=== PATIENT | female | born 2000 | race Caucasian/White ===

== ENCOUNTER 2023-08-02 14:26 | Inpatient (IN) ==
[2023-08-02 15:35] LABS: Basophils # (auto) 0.04 K/uL (0.00-0.20); Basophils % (auto) 0.7 %; Eosinophils # (auto) 0.01 K/uL (0.00-0.50); Eosinophils % (auto) 0.2 %; Hemoglobin 13.4 g/dl (12.0-16.0); Immature Granulocytes # (auto) 0.02 K/uL (0.01-0.20); Immature Granulocytes % (auto) 0.3 %; Lymphocytes # (auto) 0.92 K/uL (1.20-3.40); Lymphocytes % (auto) 15.9 %; Mean Corpuscular Hemoglobin 30.3 pg (25.0-34.0); Mean Corpuscular Hgb Conc 33.5 g/dL (32.0-36.0); Mean Corpuscular Volume 90.5 fL (80.0-100.0); Mean Platelet Volume 8.9 fL (9.4-12.4); Monocytes # (auto) 0.34 K/uL (0.11-0.59); Monocytes % (auto) 5.9 %; Neutrophils # (auto) 4.45 K/uL (1.40-6.50); Platelet Count 219 K/uL (130-400); RDW Coefficient of Variation 13.1 % (11.5-14.5); RDW Standard Deviation 42.9 fL (36.4-46.3); Red Blood Count 4.42 M/uL (4.20-5.40); White Blood Count 5.78 K/ul (4.8-10.8)
[2023-08-02 15:46] LABS: Albumin Globulin Ratio 1.4 (0.9-2); Albumin Level 4.6 gm/dl (3.4-5.0); BUN Creatinine Ratio 8.5 (10-20); Bilirubin,Total 1.2 mg/dl (0.2-1.0); Calcium 9.7 mg/dl (8.6-10.3); Creatinine Clr Calc Pharmacy 109.9 ml/min; Est GFR (African American) 140.1 ml/min; Est GFR (Non-African American) 120.9 ml/min; Globulin 3.3 gm/dl (2.5-4.0); Potassium 3.7 mmol/L (3.5-5.1); Total Protein 7.9 gm/dl (6.0-8.3)
[2023-08-02 15:55] LABS: Acetaminophen < 3 ug/ml (10-30); Salicylate < 3.0 mg/dl (3.0-30)
[2023-08-02 15:59] LABS: Thyroid Stimulating Hormone 1.518 uIu/ml (0.300-4.500)
--- NOTE | 2023-08-02 20:10 | Emergency Department Note ---
History of Present Illness General Chief complaint: Mental Health Evaluation Stated complaint: OVERDOSE, MHID Time Seen by Provider: 08/02/23 14:38 History of Present Illness Provider complaint: Mental health evaluation Six 23-year-old female presents to the emergency department for mental health evaluation. Patient states she is very depressed. She states earlier today she got to an argument with another female friend and then impulsively tried to overdose by taking 10 tablets of spironolactone 25 mg 1 hour ago. She denies any chance of no access to any firearms. Home Medications Medication Instructions Recorded Confirmed Type spironolactone 100 mg tablet 100 mg PO HS 08/02/23 08/02/23 History Allergies Allergy/AdvReac Type Severity Reaction Status Date / Time Penicillins Allergy Rash Verified 08/02/23 17:55 Past Med/Surg History Medical History No pertinent family history Depression Surgical History No pertinent past surgical history Social History Smoking Status: Never smoker Feels Safe at Home: Yes Gender Identity: Female Physical Exam Vital Signs Vital Signs - 24 hr 08/02/23 14:35 08/02/23 14:35 08/02/23 14:58 Temperature 36.7 C 36.6 C Temperature Source Oral Oral Pulse Rate 106 H Pulse Rate [Left Finger] 106 H 101 H Pulse Rate from SpO2 Sensor Pulse Rhythm Regular Pulse Rhythm [Left Finger] Pulse Strength Normal Pulse Strength [Left Finger] Respiratory Rate 22 14 18 Respiratory Effort / Characteristics Non-Labored Spontaneous Non-Labored Spontaneous Respiratory Depth Normal Normal Respiratory Pattern Regular Regular Blood Pressure 139/98 Blood Pressure [Right Arm] 139/98 122/76 Blood Pressure Mean 111 Blood Pressure Mean [Right Arm] 111 91 Blood Pressure Position Sitting Blood Pressure Position [Right Arm] Semi-fowlers Pulse Oximetry 96 96 99 Oxygen Delivery Method Room Air Room Air Room Air Sepsis Recent Fever Within 48 Hours No Sepsis New/Unexplained Change in Mental Status No Sepsis Action Taken by Nursing No Action Required 08/02/23 15:15 08/02/23 15:24 08/02/23 15:30 Temperature Temperature Source Pulse Rate 78 85 98 H Pulse Rate [Left Finger] Pulse Rate from SpO2 Sensor 82 102 H Pulse Rhythm Pulse Rhythm [Left Finger] Pulse Strength Pulse Strength [Left Finger] Respiratory Rate 12 17 Respiratory Effort / Characteristics Respiratory Depth Respiratory Pattern Blood Pressure 120/76 122/76 Blood Pressure [Right Arm] Blood Pressure Mean 90 91 Blood Pressure Mean [Right Arm] Blood Pressure Position Blood Pressure Position [Right Arm] Pulse Oximetry 99 96 Oxygen Delivery Method Sepsis Recent Fever Within 48 Hours Sepsis New/Unexplained Change in Mental Status Sepsis Action Taken by Nursing 08/02/23 15:45 08/02/23 16:34 08/02/23 18:00 Temperature Temperature Source Pulse Rate 85 Pulse Rate [Left Finger] 89 79 Pulse Rate from SpO2 Sensor 75 Pulse Rhythm Pulse Rhythm [Left Finger] Pulse Strength Pulse Strength [Left Finger] Respiratory Rate 20 18 16 Respiratory Effort / Characteristics Respiratory Depth Respiratory Pattern Blood Pressure 114/72 Blood Pressure [Right Arm] 120/61 114/65 Blood Pressure Mean 86 Blood Pressure Mean [Right Arm] 80 81 Blood Pressure Position Blood Pressure Position [Right Arm] Pulse Oximetry 97 97 98 Oxygen Delivery Method Sepsis Recent Fever Within 48 Hours Sepsis New/Unexplained Change in Mental Status Sepsis Action Taken by Nursing 08/02/23 19:23 08/02/23 20:00 08/02/23 20:32 Temperature Temperature Source Pulse Rate 129 H Pulse Rate [Left Finger] 88 82 Pulse Rate from SpO2 Sensor Pulse Rhythm Pulse Rhythm [Left Finger] Regular Regular Pulse Strength Pulse Strength [Left Finger] Normal Normal Respiratory Rate 18 16 Respiratory Effort / Characteristics Non-Labored Spontaneous Non-Labored Respiratory Depth Normal Normal Respiratory Pattern Regular Regular Blood Pressure Blood Pressure [Right Arm] 115/66 125/93 Blood Pressure Mean Blood Pressure Mean [Right Arm] 82 103 Blood Pressure Position Blood Pressure Position [Right Arm] Lying Pulse Oximetry 96 95 Oxygen Delivery Method Room Air Room Air Sepsis Recent Fever Within 48 Hours Sepsis New/Unexplained Change in Mental Status Sepsis Action Taken by Nursing 08/02/23 20:48 Temperature Temperature Source Pulse Rate Pulse Rate [Left Finger] 77 Pulse Rate from SpO2 Sensor Pulse Rhythm Pulse Rhythm [Left Finger] Regular Pulse Strength Pulse Strength [Left Finger] Normal Respiratory Rate 16 Respiratory Effort / Characteristics Non-Labored Respiratory Depth Normal Respiratory Pattern Regular Blood Pressure Blood Pressure [Right Arm] 107/63 Blood Pressure Mean Blood Pressure Mean [Right Arm] 77 Blood Pressure Position Blood Pressure Position [Right Arm] Lying Pulse Oximetry 97 Oxygen Delivery Method Room Air Sepsis Recent Fever Within 48 Hours Sepsis New/Unexplained Change in Mental Status Sepsis Action Taken by Nursing Physical Exam GENERAL: oriented to person, place, and time. appears well-developed and well- nourished. HENT: Exam performed. - Head: Normocephalic and atraumatic. EYES: Conjunctivae and EOM are normal. Right eye exhibits no discharge. Left eye exhibits no discharge. No scleral icterus. NECK: Normal range of motion. Neck supple. No JVD present. CV: Normal rate, regular rhythm, normal heart sounds and intact distal pulses. There is no peripheral edema. Palpable radial pulses bue. PULM/CHEST: Effort normal and breath sounds normal. No respiratory distress. No stridor. no wheezes. no rales. ABD: The abdomen is soft. There is no tenderness. NEURO: Motor and sensation grossly intact. SKIN: Skin is warm and dry. He is not diaphoretic. PSYCH: Depression suicidal ideation. Course Course 1438: The patient was evaluated in room A6. A complete history and physical exam was performed 150: Spoke with Edwin from poison control. He states that the patient should have her vitals and electrolytes checked along with serum Tylenol and salicylate level. He recommends observation for the patient for 4 to 6 hours. 1600: Labs within normal limits. Will continue to observe the patient had the patient evaluated by psychiatric lining caser for inpatient treatment. Patient placed in observation at this time. 2138: Excepted to the [facility] transport scheduled for tomorrow morning. Case signed out to Dr. Forrest Medical Decision Making Laboratory Data Attestation: I reviewed the patient's lab results. 08/02/23 15:05 08/02/23 15:05 Lab Results 08/02/23 08/02/23 Range/Units 15:05 21:06 WBC 5.78 (4.8-10.8) K/ul RBC 4.42 (4.20-5.40) M/uL Hgb 13.4 (12.0-16.0) g/dl Hct 40.0 (37.0-47.0) % MCV 90.5 (80.0-100.0) fL MCH 30.3 (25.0-34.0) pg MCHC 33.5 (32.0-36.0) g/dL RDW Std Deviation 42.9 (36.4-46.3) fL RDW Coeff of Ramiro 13.1 (11.5-14.5) % Plt Count 219 (130-400) K/uL MPV 8.9 L (9.4-12.4) fL Immature Gran % (Auto) 0.3 % Neut % (Auto) 77.0 % Lymph % (Auto) 15.9 % [place] % (Auto) 5.9 % Eos % (Auto) 0.2 % Baso % (Auto) 0.7 % Neut # (Auto) 4.45 (1.40-6.50) K/uL Lymph # (Auto) 0.92 L (1.20-3.40) K/uL [place] # (Auto) 0.34 (0.11-0.59) K/uL Eos # (Auto) 0.01 (0.00-0.50) K/uL Baso # (Auto) 0.04 (0.00-0.20) K/uL Immature Gran # (Auto) 0.02 (0.01-0.20) K/uL Sodium 140 (136-145) mmol/L Potassium 3.7 (3.5-5.1) mmol/L Chloride 106 (98-107) mmol/L Carbon Dioxide 23 (21-32) mmol/L Anion Gap 11 (3-11) BUN 6 (6-23) mg/dl Creatinine 0.71 (0.6-1.2) mg/dl Est Cr Clr Drug Dosing 109.9 ml/min Est GFR ( Amer) 140.1 ml/min Est GFR (Non-Af Amer) 120.9 ml/min BUN/Creatinine Ratio 8.5 L (10-20) Glucose 94 (70-99(Fasting)) mg/dl Calcium 9.7 (8.6-10.3) mg/dl Total Bilirubin 1.2 H (0.2-1.0) mg/dl AST 25 (13-39) U/L ALT 13 (7-52) U/L Alkaline Phosphatase 48 (34-104) U/L Total Protein 7.9 (6.0-8.3) gm/dl Albumin 4.6 (3.4-5.0) gm/dl Globulin 3.3 (2.5-4.0) gm/dl Albumin/Globulin Ratio 1.4 (0.9-2) TSH 1.518 (0.300-4.500) uIu/ml POC Ur Test NEG (NEG) Salicylates < 3.0 L (3.0-30) mg/dl Acetaminophen < 3 L (10-30) ug/ml Ethyl Alcohol mg/dL < 10.0 (<10.0) mg/dl SARS-CoV-2, RNA, NAAT NEGATIVE (NEGATIVE) ECG Data Attestation: I personally reviewed and interpreted this ECG as follows: Indication: + toxicologic Rate (beats per minute): 100 ECG Intervals/blocks: + Normal WA and + Normal QT-c ECG ST segments: + Normal ST segments Additional Comments: QRS 70 MDM Narrative 1438: The patient was evaluated in room A6. A complete history and physical exam was performed 1502: Spoke with Edwin from poison control. He states that the patient should have her vitals and electrolytes checked along with serum Tylenol and salicylate level. He recommends observation for the patient for 4 to 6 hours. 1600: Labs within normal limits. Will continue to observe the patient had the patient evaluated by psychiatric lining caser for inpatient treatment. Patient placed in observation at this time. 2138: Excepted to the [facility] transport scheduled for tomorrow morning. Case signed out to Dr. Forrest Observation note Indication: Psych eval/placement Patient, with depression was first seen at 1438 hrs and the observation time began at 1600 hrs and was necessary in order to have psych evaluation completed . Impression & Plan Depression with suicidal ideation Discharge Plan Visit Data Chief Complaint: Mental Health Evaluation Stated Complaint: OVERDOSE, MHID ED Provider: Anirudh Forrest Discharge Problem: Depression with suicidal ideation Patient Disposition: Transfer Behavioral Health Fac Forms Stand Alone Forms: My [facility], Suicide Prevention Resources Prescriptions Prescriptions: No Action spironolactone 100 mg Tablet 100 mg PO HS Referrals Referrals: PCP,NO [Primary Care Provider] -
[2023-08-02 22:02] LABS: Appearance Urine Cloudy (Clear); Bacteria Urine Automated 1+ (None Seen); Bilirubin Urine Negative (Negative); Blood Urine 3+ (Negative); Color Urine Orange; Glucose Urine UA Negative (Negative); Ketones Urine Trace (Negative); Leukocyte Esterase Urine Trace (Negative); Nitrite Urine Negative (Negative); Protein Urine 2+ (Negative); RBC Urine Automated >20 /hpf (0-2); Specific Gravity Urine 1.017 (1.000-1.030); Urobilinogen Urine Negative (Negative); WBC Urine Automated 0-5 /hpf (0-5)
[2023-08-02 22:39] LABS: Amphetamines+Metham, Urine Neg (Neg); Barbiturates, Urine Neg (Neg); Benzodiazepine, Urine Neg (Neg); Cocaine, Urine Pos (Neg); MDMA (Ecstacy), Urine Neg (Neg); Marijuana, Urine Pos (Neg); Methadone, Urine Neg (Neg); Opiate, Urine Neg (Neg); Phencyclidine, Urine Neg (Neg)
--- NOTE | 2023-08-02 23:04 | Emergency Department Note ---
ED Visit Note I assumed care at the change of shift. The patient had presented voluntarily after overdosing on spironolactone. She was thought to be medically clear. The poison center was involved in her clearance. A bed search was underway. Patient was accepted to our psychiatric service, 3 S. The appropriate paperwork was signed. She will be admitted voluntarily. .
[2023-08-02] MEDS ORDERED: ACETAMINOPHEN 325 MG TAB PO PRN (23:50)
[2023-08-02] MEDS ORDERED: ALUMINUM/MAGNESIUM SUSP 30 ML UDC PO PRN (23:50)
[2023-08-02] MEDS ORDERED: SODIUM CHLORIDE 0.65% NA SOLN 45 ML (OCEAN) PRN (23:50)
[2023-08-02] MEDS ORDERED: BISMUTH SUBSALICYLATE LIQD 236 ML PO PRN (23:50)
[2023-08-02] MEDS ORDERED: MAGNESIUM HYDROXIDE SUSP 30 ML UDC PO PRN (23:50)
--- NOTE | 2023-08-03 09:05 | History & Physical ---
Date of Service August 03, 2023 Impression / Recommendations Impression Amber is a 23 year old woman and [employer] senior with a history of depression and anxiety who was admitted for suicide attempt via overdose of prescription medication in the context of conflict with friends and shame of not being able to graduate. Diagnostically consistent with major depressive disorder with anxious distress and SARAH. She is deemed in need of psychiatric hospitalization for diagnostic clarification, safety and stabilization, medication management and development of further coping skills. Discussed medication treatment options in detail including SSRIs and SNRIs. Discussed risks, benefits and alternatives. She declines medication at this time, prefers to focus on therapy. Motivational interviewing regarding substance use, she plans to avoid future use. Overall I spent a total of 80 minutes for this admission including review of chart records, review of labwork, direct evaluation of the patient, counseling the patient, ordering medication, risk assessment, discussion with the psychiatric liason RN and documentation in the electronic health record. (1) Suicide attempt: (2) Recurrent severe major depressive disorder with anxiety: (3) SARAH (generalized anxiety disorder): Plan 08/03/2023: The patient was admitted to the [facility] on q15 min checks (behavioral with suicide precautions) for safety. The patient will participate in group, recreational, and milieu therapies and will be offered additional individual and family sessions as clinically appropriate. -Reviewed option to use Vistaril prn Inventory Assets Strengths: supportive relationships, willing to get treatment Needs: safety and stabilization, medication adjustment, additional coping skills, increased outpatient services Suicide Risk Level Suicide Risk Level: High-Moderate (q15 min suicide checks) (depression s/p suicide attempt but feels safe in the hospital) Risk Factors Assessment : Yes Do You Have Access To A Gun?: No Mental Health Diagnoses: Yes Previous Attempt: Yes (leading to this admission) Family History of Suicide: No Previous Psychiatric Hospitalization: No Hopelessness: No Protective Factors Assessment 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 Chief Complaint "I'm so sad, I really miss my parents". History of Present Illness Eleni presents for psychiatric admission for worsening depression and after a suicide attempt from overdose of prescription medication of spironolactone or sertraline (~10 tablets) and writing a suicide note for her family and friends. She reports multiple recent psychosocial stressors contributing to the worsening of her depression and leading to her suicide attempt including academic stress including not being able to graduate but hadn't yet shared this with family, concern about how to tell her parents, and conflict with friends. "I just didn't want to deal with everything with graduation and how to tell my parents". Her depression worsened significantly this winter with anhedonia, low energy, napping a lot during the day and difficulty sleeping at night, hopelessness, decreased appetite but trying to eat still. SI started around the same time her depression worsened but she never thought she would act on these thoughts. Was having SI about once a day. A friend broke her trust and then started spreading lies about her last week which added to her feeling of being "so sick of everything" and stress about not graduating. Yesterday in the moment she impulsively took some of her medication and then wrote a suicide note. Then she started to throw up and felt light headed. Her mom then called and after revealing her suicide attempt an ambulance was called. She's happy to be alive. She also endorses anxiety symptoms including excessive worry, restlessness, fatigue, irritability, muscle tension, insomnia sometimes heart will race has never had a panic attacks. Additional information per ED CM note on 08/02/2023: "Amber stated she has been really depressed. She stated this morning she took medicine because "I didn't want to be here." She stated she overdosed on Zoloft. She denies any pr ior suicide attempts. 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 She lives off campus with two roommates. Amber stated she is from [facility]. She stated she sees a therapist at [facility]. She stopped seeing her psychiatrist a month ago when she stopped her medication. She has not taken her prescribed Lexapro approx. 3-4 weeks ago. She had written a suicide note. She denies any HI or aggression. She denies SIB. She denies hallucinations, paranoia, or delusion based thinking. She has no inpatient treatment history. She is diagnosed with depression and anxiety. She denies any medical issues. She stated she drinks alcohol socially. She denies substance use. She denies any legal issues. She denies history of trauma/abuse. She is agreeable with recommendation for inpatient mental health treatment." She is not currently taking any psychiatric medications. Stopped taking esc italopram about 3-4 weeks ago. Psychiatric ROS notable for no current or past symptoms of cherry, psychosis, eating disorder, self-harm nor OCD. Past Psychiatric History Previous Psych History: Reports she has been depressed since high school Current Psychiatric Diagnosis: Depression; Anxiety Outpatient Services: Vaishnavi Valerio therapist at [facility], seeing for the last month weekly Used to see a psychiatrist through [facility] but after she left the practice she stopped seeing anyone Previous Psych Admissions: none Do You Have Access To A Gun?: No History of Previous Suicide Attempt: No Past Medication Trials: sertraline (50mg, started in Apr 2023 took for about 1-2 months, caused sweatiness, OH, sleep issues); escitalopram (10mg qd, ~1 month) Past Head Trauma/Neuro History History of Concussion/Seizure: Yes 2 mild concussions in high school no hx seizure Allergies Allergy/AdvReac Type Severity Reaction Status Date / Time Penicillins Allergy Rash Verified 08/02/23 17:55 Home Medications Medication Instructions Recorded Confirmed Type spironolactone 100 mg tablet 100 mg PO HS 08/02/23 08/02/23 History Family History Family History of: Depression, Anxiety and Other-List under Comment (brother with ASD) Alcohol History Hx of Alcohol Use Over the Past 12 Months: Yes (socially) AUDIT Total Score: 4 Smoking Use Have You Smoked or Used Tobacco Products in the Last 30 Days: No Smoking Status: Never smoker Substance History Hx of Prescription Med Misuse Over the Past 12 Months: No Hx of Over the Counter Med Misuse Over the Past 12 Months: No Hx of Inhalent Misuse Over the Past 12 Months: No Hx of Organic Substance Use Over the Past 12 Months: No Hx of Illegal Substances/Street Drug Use Over Past 12 Months: No Problems as a Result of Past Substance Use: None Identified Occasionally will smoke cannabis likes it helps with sleep, can interfere with socializing. This weekend tried cocaine via snorting. Personal History Living Arrangements: Apartment Childhood: Grew up outside [place]. Parents are . Older brother and 3 younger sisters. 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 Required: No Beliefs That Will Affect Care: None Feels Safe at Home: Yes Gender Identity: Female Assistive Devices: None Review of Systems Review of Systems: All systems reviewed & are unremarkable except as noted in HPI & below Physical Exam Psychiatric: Orientation: alert and oriented x 3 Apperance: appropriately dressed and appropriately groomed Eye Contact: good eye contact Motor Behavior: no abnormal motor movements Speech: normal rate/rhythm/volume of speech Affect: + depressed affect, + anxious affect and + tearful affect Mood: + depressed mood and + anxious mood Thought Process: goal directed thought process Thought Content: reality based without delusions Suicidal Thoughts: denies suicidal thoughts (but s/p suicide attempt), denies suicidal plan and denies suicidal intent Homicidal Thoughts: denies homicidal thoughts Hallucinations: no auditory hallucinations and no visual hallucinations Cognition: recent memory grossly intact, remote memory grossly intact, attention grossly intact and language grossly intact Estimated Intelligence: consistent with education level Insight: + fair insight Judgment: + limited judgement Vital Signs (Past 24 Hours): Last Vital Signs Temp 36.8 C 08/03/23 06:30 Pulse 75 08/03/23 06:31 Resp 16 08/03/23 06:30 BP 109/71 08/03/23 06:31 Pulse Ox 97 08/02/23 23:58 O2 Del Method Room Air 08/02/23 23:58 Exam Statement: A physical exam was performed in the ED by Dr. Fields for the purposes of medical clearance. I accept that physical as correct and adequate for the purposes of the inpatient physical exam. Results & Data [facility] Laboratory Results Laboratory Results - last 24 hr 08/02/23 08/02/23 08/02/23 15:05 20:56 21:06 WBC 5.78 RBC 4.42 Hgb 13.4 Hct 40.0 MCV 90.5 MCH 30.3 MCHC 33.5 RDW Std Deviation 42.9 RDW Coeff of Ramiro 13.1 Plt Count 219 MPV 8.9 L Immature Gran % (Auto) 0.3 Neut % (Auto) 77.0 Lymph % (Auto) 15.9 [place] % (Auto) 5.9 Eos % (Auto) 0.2 Baso % (Auto) 0.7 Neut # (Auto) 4.45 Lymph # (Auto) 0.92 L [place] # (Auto) 0.34 Eos # (Auto) 0.01 Baso # (Auto) 0.04 Immature Gran # (Auto) 0.02 Sodium 140 Potassium 3.7 Chloride 106 Carbon Dioxide 23 Anion Gap 11 BUN 6 Creatinine 0.71 Est Cr Clr Drug Dosing 109.9 Est GFR ( Amer) 140.1 Est GFR (Non-Af Amer) 120.9 BUN/Creatinine Ratio 8.5 L Glucose 94 Calcium 9.7 Total Bilirubin 1.2 H AST 25 ALT 13 Alkaline Phosphatase 48 Total Protein 7.9 Albumin 4.6 Globulin 3.3 Albumin/Globulin Ratio 1.4 TSH 1.518 Urine Color [place] Urine Appearance Cloudy A Urine pH 7.0 Ur Specific [place] 1.017 Urine Protein 2+ H Urine Glucose (UA) Negative Urine Ketones Trace H Urine Blood 3+ H Urine Nitrite Negative Urine Bilirubin Negative Urine Urobilinogen Negative Ur Leukocyte Esterase Trace H Urine WBC (Auto) 0-5 Urine RBC (Auto) >20 H U Hyaline Cast (Auto) 3-5 H U Epithel Cells (Auto) 3-5 H Urine Bacteria (Auto) 1+ H POC Ur Test NEG Salicylates < 3.0 L Urine Opiates Screen Neg Ur Methadone, Qual Neg Acetaminophen < 3 L Urine Barbiturates Neg Ur Phencyclidine (PCP) Neg U Amphetamin/Meth Scrn Neg MDMA (Ecstasy) Screen Neg U Benzodiazepines Scrn Neg U Cocaine Confirm GC/MS Pending Ur Cocaine Metabolite Pos H U Marijuana (THC) Screen Pos H U Marijuana THC Carboxy Pending Drug Screen Comment Pending Ethyl Alcohol mg/dL < 10.0 SARS-CoV-2, RNA, NAAT NEGATIVE Diagnostic Findings normal QTc on EKG done in the ED Current Inpatient Medications Current Inpatient Medications: Current Inpatient Medications Acetaminophen (Acetaminophen 325 Mg Tab) 650 mg PO Q4H PRN PRN Reason: Headache or Minor Fever Stop: 09/01/23 23:49 Al Hydrox/Mg Hydrox/Simethicone (Aluminum/Magnesium Susp 30 Ml Udc) 30 ml PO Q4H PRN PRN Reason: GI Upset Stop: 09/01/23 23:49 Bismuth Subsalicylate (Bismuth Subsalicylate Liqd 236 Ml) 15 ml PO PRN PRN PRN Reason: Loose Stool Stop: 09/01/23 23:49 Hydroxyzine HCl (Hydroxyzine Hcl 25 Mg Tab) 25 mg PO Q4H PRN PRN Reason: Anxiety Stop: 09/01/23 23:49 Magnesium Hydroxide (Magnesium Hydroxide Susp 30 Ml Udc) 30 ml PO DAILY PRN PRN Reason: Constipation Stop: 09/01/23 23:49 Sodium Chloride (Sodium Chloride 0.65% Na Soln 45 Ml ([place])) 1 - 2 sprays NA PRN PRN PRN Reason: Nasal Dryness/Congestion Stop: 09/01/23 23:49
[2023-08-03] MEDS: hydrOXYzine HCl 25 MG TAB PO PRN (23:51)
--- NOTE | 2023-08-04 08:53 | Psychiatric Progress Note ---
Date of Service August 04, 2023 Impression / Recommendations Impression Amber is a 23 year old woman and [employer] senior with a history of depression and anxiety who was admitted for suicide attempt via overdose of prescription medication in the context of conflict with friends and shame of not being able to graduate. Diagnostically consistent with major depressive disorder with anxious distress and SARAH. She is deemed in need of psychiatric hospitalization for diagnostic clarification, safety and stabilization, medication management and development of further coping skills. 08/04/2023: Mood improving, some anxiety about revealing to her parents tonight her inability to graduate as anticipated. Denying SI. Scheduling support meeting and plans to complete [facility] intake today. Overall, I spent a total of 28 minutes on this case including meeting with the patient, reviewing the chart, nursing report, multidisciplinary team meeting, orders, and documentation. (1) Suicide attempt: (2) Recurrent severe major depressive disorder with anxiety: (3) SARAH (generalized anxiety disorder): Plan 08/04/2023: -melatonin 3mg HS prn -[facility] IOP intake 08/03/2023: The patient was admitted to the [facility] ([facility] mental health unit) on q15 min checks (behavioral with suicide precautions) for safety. The patient will participate in group, recreational, and milieu therapies and will be offered additional individual and family sessions as clinically appropriate. -Reviewed option to use Vistaril prn Inventory Assets Strengths: supportive relationships, willing to get treatment Needs: safety and stabilization, medication adjustment, additional coping skills, increased outpatient services Suicide Risk Level Suicide Risk Level: Moderate (q15 min suicide checks) (mood improving, some anxiety and s/p attempt but feels safe ) Risk Factors Assessment : Yes Do You Have Access To A Gun?: No Mental Health Diagnoses: Yes Previous Attempt: Yes (leading to this admission) Family History of Suicide: No Previous Psychiatric Hospitalization: No Hopelessness: No Protective Factors Assessment 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 Chief Complaint "A little better, a little nervous". Review of Systems Sleep Information Total Hours of Sleep: 7.5 Sleep Comments: Meal Information Percent Meal Consumed - Breakfast: 75 Percent Meal Consumed - Lunch: 50 Percent Meal Consumed - Dinner: 90 Subjective Subjective Patient was seen & assessed and interval progress reviewed with treatment team nursing and social work. She is excited to see her parents but also nervous about discussing not graduating with them. She believes her parents will be supportive but may be disappointed. She mentions struggling with school in the past and feeling proud of progress in college and wonders if this was why it was challenging for her to discuss her academic struggles this semester. She is open to receiving evidence-based therapy from [facility] but hesitant to take medication anytime soon due to recent negative experience. She tried Vistaril prn for sleep but did not find it helpful and does not plan to take it again. She has also tried melatonin at 5mg dose but experienced strange dreams as a side effect, she would like to possibly try 3mg dose tonight. She inquires about support meeting scheduled for tomorrow and process for signing up for [facility]. She confirms no suicidal thoughts today. Physical Exam Psychiatric Orientation: alert and oriented x 3 Apperance: appropriately dressed and appropriately groomed Eye Contact: good eye contact Motor Behavior: no abnormal motor movements Speech: normal rate/rhythm/volume of speech Affect: + anxious affect Mood: + anxious mood Thought Process: goal directed thought process Thought Content: reality based without delusions Suicidal Thoughts: denies suicidal thoughts (but s/p suicide attempt), denies suicidal plan and denies suicidal intent Homicidal Thoughts: denies homicidal thoughts Hallucinations: no auditory hallucinations and no visual hallucinations Cognition: recent memory grossly intact, remote memory grossly intact, attention grossly intact and language grossly intact Estimated Intelligence: consistent with education level Insight: + fair insight Judgment: + fair judgement Vital Signs (Past 24 Hours) Last Vital Signs Temp 36.9 C 08/04/23 06:27 Pulse 77 08/04/23 06:28 Resp 16 08/04/23 06:27 BP 112/75 08/04/23 06:28 Pulse Ox 98 08/04/23 06:27 O2 Del Method Room Air 08/04/23 06:27 Results & Data ([facility]) Current Inpatient Medications Current Inpatient Medications: Current Inpatient Medications Acetaminophen (Acetaminophen 325 Mg Tab) 650 mg PO Q4H PRN PRN Reason: Headache or Minor Fever Stop: 09/01/23 23:49 Al Hydrox/Mg Hydrox/Simethicone (Aluminum/Magnesium Susp 30 Ml Udc) 30 ml PO Q4H PRN PRN Reason: GI Upset Stop: 09/01/23 23:49 Bismuth Subsalicylate (Bismuth Subsalicylate Liqd 236 Ml) 15 ml PO PRN PRN PRN Reason: Loose Stool Stop: 09/01/23 23:49 Hydroxyzine HCl (Hydroxyzine Hcl 25 Mg Tab) 25 mg PO Q4H PRN PRN Reason: Anxiety Stop: 09/01/23 23:49 Last Admin: 08/03/23 23:51 Dose: 25 mg Magnesium Hydroxide (Magnesium Hydroxide Susp 30 Ml Udc) 30 ml PO DAILY PRN PRN Reason: Constipation Stop: 09/01/23 23:49 Sodium Chloride (Sodium Chloride 0.65% Na Soln 45 Ml ([place])) 1 - 2 sprays NA PRN PRN PRN Reason: Nasal Dryness/Congestion Stop: 09/01/23 23:49 Mental Health & Subst Abuse Tx Therapist Name of Therapist: [facility]nav[facility] Date of Therapist Appointment: 08/04/23 [employer] Name of [employer]person [employer]: None
[2023-08-04] MEDS: MELATONIN 3 MG TAB PO PRN (22:13)
--- NOTE | 2023-08-05 08:45 | Electrocardiogram Report ---
Test Reason : Blood Pressure : / mmHG Vent. Rate : 100 BPM Atrial Rate : 100 BPM P-R Int : 178 ms QRS Dur : 070 ms QT Int : 358 ms P-R-T Axes : 068 089 074 degrees QTc Int : 461 ms Normal sinus rhythm Possible Left atrial enlargement Borderline ECG No previous ECGs available Confirmed by Valeriy Arora ([id number]) on 08/05/2023 8:44:53 AM Referred By: REFERRED SELF Confirmed By:Valeriy Arora
--- NOTE | 2023-08-05 08:57 | Discharge Summary ---
Date of Service August 05, 2023 History of Present Illness Eleni presents for psychiatric admission for worsening depression and after a suicide attempt from overdose of prescription medication of spironolactone or sertraline (~10 tablets) and writing a suicide note for her family and friends. She reports multiple recent psychosocial stressors contributing to the worsening of her depression and leading to her suicide attempt including academic stress including not being able to graduate but hadn't yet shared this with family, concern about how to tell her parents, and conflict with friends. "I just didn't want to deal with everything with graduation and how to tell my parents". Her depression worsened significantly this winter with anhedonia, low energy, napping a lot during the day and difficulty sleeping at night, hopelessness, decreased appetite but trying to eat still. SI started around the same time her depression worsened but she never thought she would act on these thoughts. Was having SI about once a day. A friend broke her trust and then started spreading lies about her last week which added to her feeling of being "so sick of everything" and stress about not graduating. Yesterday in the moment she impulsively took some of her medication and then wrote a suicide note. Then she started to throw up and felt light headed. Her mom then called and after revealing her suicide attempt an ambulance was called. She's happy to be alive. She also endorses anxiety symptoms including excessive worry, restlessness, fatigue, irritability, muscle tension, insomnia sometimes heart will race has never had a panic attacks. Additional information per ED CM note on 08/02/2023: "Amber stated she has been really depressed. She stated this morning she took medicine because "I didn't want to be here." She stated she overdosed on Zoloft. She denies any prior suicide attempts. 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 She lives off campus with two roommates. Amber stated she is from [facility]. She stated she sees a therapist at [facility]. She stopped seeing her psychiatrist a month ago when she stopped her medication. She has not taken her prescribed Lexapro approx. 3-4 weeks ago. She had written a suicide note. She denies any HI or aggression. She denies SIB. She denies hallucinations, paranoia, or delusion based thinking. She has no inpatient treatment history. She is diagnosed with depression and anxiety. She denies any medical issues. She stated she drinks alcohol socially. She denies substance use. She denies any legal issues. She denies history of trauma/abuse. She is agreeable with recommendation for inpatient mental health treatment." She is not currently taking any psychiatric medications. Stopped taking escitalopram about 3-4 weeks ago. Psychiatric ROS notable for no current or past symptoms of cherry, psychosis, eating disorder, self-harm nor OCD. Physical Exam Vital Signs (Past 24 Hours) Last Vital Signs Temp 36.0 C L 08/05/23 05:58 Pulse 67 08/05/23 05:58 Resp 16 08/05/23 05:58 BP 111/73 08/05/23 05:58 Pulse Ox 98 08/04/23 06:27 O2 Del Method Room Air 08/04/23 06:27 See admission H&P and DOD summary. Principal Diagnosis Major Depressive Disorder Psychiatric Data See daily stay summary. In short, patient was engaged with the social/therapeutic milieu of the unit, safety was maintained and the patient was cooperative with care. Medication changes included discontinuation of spironolactone and they tolerated this well. A family session was held and safety plan was completed prior to discharge. She actively and insightfully participated in safety planning and in discussions about ways to seek support and recognizing warning signs and utilizing coping skills. Reviewed mobile apps that could be used for additional ways to have their safety plan and contacts easily available should thoughts of SI re-emerge in the future. Reviewed importance of seeking emergency care should SI intensify, worsen or should they feel unsafe in the future which they agree to do. On the day of discharge she stated her mood was "good" and remained future-oriented including seeing her family, being outside, driving home and engaging in aftercare appointments for [facility] and [employer] student care and advocacy. Day of Discharge Assessment Today the patient voices readiness for discharge. They note improvement in mood and anxiety. They deny thoughts of harm to self or others. Thoughts are organized and they are clinically improved from admission. There is no evidence of psychosis. They improved in the hospital with support. They agree to keep follow-up appointments. At the time of the discharge they are deemed to be stable and appropriate for outpatient level of care. They are not deemed to be at imminent risk of harm to self or others. They are aware of emergency and crisis services. Knows to call 911 or go to nearest emergency care center if in a crisis which cannot be handled as an outpatient. Overall, I spent a total of 35 minutes on this case including meeting with the patient, reviewing the chart, nursing report, multidisciplinary team meeting, orders, and documentation. Transition of Care Transition Of Care Record: was reviewed with the patient Advance Directives Advance Directives Information Provided: Yes Advance Directives: No Mental Health Advance Directive: No Advance Directives on File: No Living Will: No Power of Financial Services Agent: No Advance Directives Reason:: Declines as Mental Health Visit. Suicide Risk Level Suicide Risk Level Comments: Acute risk is low given improvement in mood and denial of SI, lack of access to lethal means, plan to avoid substance use, hopefulness and reduction in anxiety. Chronic risk is moderate given some non-modifiable risk factors: periods of impulsivity, prior attempt but also with protective factors including: student, sense of responsibility to family and social supports, outpatient care in place, positive coping skills, positive problem solving, capacity to establish therapeutic alliance, willingness to engage with treatment and capacity for self-observation. Counseled on ways to reduce acute and chronic risk including engaging with outpatient providers, using safety plan if needed, utilizing supports, option for medication in the future, and using coping skills. Modifiable risk factors of SI and depression were addressed during hospitalization through development of new coping skills, family meeting, safety planning, and plan for CBT IOP. 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 Relationships: Yes Supportive Family: Yes Discharge Data Lab Results 08/02/23 08/02/23 08/02/23 15:05 20:56 21:06 WBC 5.78 RBC 4.42 Hgb 13.4 Hct 40.0 MCV 90.5 MCH 30.3 MCHC 33.5 RDW Std Deviation 42.9 RDW Coeff of Ramiro 13.1 Plt Count 219 MPV 8.9 L Immature Gran % (Auto) 0.3 Neut % (Auto) 77.0 Lymph % (Auto) 15.9 [place] % (Auto) 5.9 Eos % (Auto) 0.2 Baso % (Auto) 0.7 Neut # (Auto) 4.45 Lymph # (Auto) 0.92 L [place] # (Auto) 0.34 Eos # (Auto) 0.01 Baso # (Auto) 0.04 Immature Gran # (Auto) 0.02 Sodium 140 Potassium 3.7 Chloride 106 Carbon Dioxide 23 Anion Gap 11 BUN 6 Creatinine 0.71 Est Cr Clr Drug Dosing 109.9 Est GFR ( Amer) 140.1 Est GFR (Non-Af Amer) 120.9 BUN/Creatinine Ratio 8.5 L Glucose 94 Calcium 9.7 Total Bilirubin 1.2 H AST 25 ALT 13 Alkaline Phosphatase 48 Total Protein 7.9 Albumin 4.6 Globulin 3.3 Albumin/Globulin Ratio 1.4 TSH 1.518 Urine Color [place] Urine Appearance Cloudy A Urine pH 7.0 Ur Specific [place] 1.017 Urine Protein 2+ H Urine Glucose (UA) Negative Urine Ketones Trace H Urine Blood 3+ H Urine Nitrite Negative Urine Bilirubin Negative Urine Urobilinogen Negative Ur Leukocyte Esterase Trace H Urine WBC (Auto) 0-5 Urine RBC (Auto) >20 H U Hyaline Cast (Auto) 3-5 H U Epithel Cells (Auto) 3-5 H Urine Bacteria (Auto) 1+ H POC Ur Test NEG Salicylates < 3.0 L Urine Opiates Screen Neg Ur Methadone, Qual Neg Acetaminophen < 3 L Urine Barbiturates Neg Ur Phencyclidine (PCP) Neg U Amphetamin/Meth Scrn Neg MDMA (Ecstasy) Screen Neg U Benzodiazepines Scrn Neg Ur Cocaine Metabolite Pos H U Marijuana (THC) Screen Pos H Ethyl Alcohol mg/dL < 10.0 SARS-CoV-2, RNA, NAAT NEGATIVE Hospital Course (1) Suicide attempt: (2) Recurrent severe major depressive disorder with anxiety: (3) SARAH (generalized anxiety disorder): Plan 08/05/2023: Feels safe, improved mood, eager for discharge 08/04/2023: -melatonin 3mg HS prn -[facility] IOP intake 08/03/2023: The patient was admitted to the [facility]) on q15 min checks (behavioral with suicide precautions) for safety. The patient will participate in group, recreational, and milieu therapies and will be offered additional individual and family sessions as clinically appropriate. -Reviewed option to use Vistaril prn Mental Health & Subst Abuse Tx Therapist Name of Therapist: Cande Riggins Date of Therapist Appointment: 08/11/23 Time of Therapist Appointment: 1pm Therapy Appointment Comment: Telehealth Milk P[employer]urizer Name of Milk Pasteurizer: Student Care and Advocacy Phone Number for Milk P[employer]urizer: [phone] Case Management Appointment Comment: Zoom link will be sent to [employer] email Discharge Plan Discharge Items Patient Disposition: Home - Self-Care Reason For Visit: UNSPECIFIED DEPRESSIVE DISORDER Discharge Diagnosis: Major Depressive Disorder Activity: Resume your previous activity Non-emergency contact: Primary Care Provider, Psychiatrist and Therapist Call non-emergency contact if: you have any medication questions and your symptoms worsen Follow-up/Referrals: PCP,NO [Primary Care Provider] - Diet: Regular Addtl Attending Provider Instructions: Optional mobile apps we discussed: -Suicide safety plan -Virtual Hope Box -Headspace ($) SPECIAL CARE INSTRUCTIONS: 1. Follow through with your scheduled aftercare appointments. If unable to keep an appointment, please call to reschedule. 2. Take your medication only as prescribed. Medication should not be changed or stopped without the approval of your doctor. In the event of worsening symptoms or concerns about side effects, contact your doctor immediately. 3. Utilize new healthy coping skills, anger management skills, and stress management skills learned during your hospitalization. Journal feelings and process them with a support person. Identify stressors or situations that may result in relapse, deterioration or inappropriate behaviors and develop a plan to deal with those issues. 4. If your coping skills are ineffective and you are in crisis, contact your outpatient providers for direction. If unable to reach your providers, please call the [facility] CRISIS LINE AT , go to the [facility] walk-in center at [address], [address], [place], or go to the closest Emergency Room. 5. Avoid alcohol and un-prescribed drugs. 6. You have been provided with the Mental Health Advance Directives Pamphlet for your review. 7. Your condition is stable for discharge to outpatient level of care, but recovery is an ongoing process. Ifthoughts to harm yourself or others return, follow the safety plan developed during your stay. Planning for a safe return home includes securing weapons. Our treatment team recommends weaponsbe removed from the home until your outpatient provider reassesses your progress. In rare cases where the items themselvescannot be removed, guns and ammunitionshould be secured separatelyand keys stored by a reliable personoutside of the home. If you were admitted on an involuntary commitment, the police or other legal authorities may be involved in this process. AFTERCARE APPOINTMENTS: * Please call your insurance company prior to your scheduled appointment to confirm your aftercare providers are covered. Take your insurance information to your appointments. WHO TO CALL AND WHEN: Medical Emergencies: For questions or emergencies related to your hospital stay, please contact the Inpatient Behavioral Health Unit at [phone]. A medical device is on-call 25/10 for the Behavioral Health Unit for emergencies At any time you feel your situation is an emergency, you may also call 911 immediately. [place] Crisis Hotline: 584 Pending Studies at Discharge: No Stand-Alone Forms: My [facility] Medications and DC Order Prescriptions: Discontinued spironolactone 100 mg Tablet 100 mg PO HS Discharge Orders: Discharge Order (Routine); Ordered 08/05/23 Ordered By: Kelsey Hannah Admission Data Admit Date/Time: 08/02/23 22:37 Attending Provider: Kelsey Hannah Admit Provider: Kelsey Hannah Primary Care Provider: PCP,NO Other Interventions: Discharge Summary Assessment (RN) Last Done: 08/05/23 09:36 PSY Interdisciplinary Discharge Planning Last Done: 08/05/23 10:15 Coding Level of Care Code 70111 D/C day mgmt > 30 min Diagnoses Suicide attempt T14.91XA Recurrent severe major depressive disorder with anxiety F33.2; F41.9 SARAH (generalized anxiety disorder) F41.1
[2023-08-05 16:26] LABS: Cocaine, Urine 2400 ng/mL (<100); Marijuana Quant, GCMS Urine 59 ng/mL (<5)
== END 2023-08-05 10:28 | disposition home or self-care (01) | DRG 885 ==
LOC: ED 14:26 → 3S 22:37